=== PATIENT | female | born 1995 | race Two or more races ===

== ENCOUNTER 2023-08-23 00:50 | Emergency (ER) | payer MEDICAID, OTHER ==
[~2023-08-23] VITALS: Ht 165.1 cm; Wt 73.1 kg
[2023-08-23 01:51] LABS: Basophils # (auto) 0 10 ^3/uL (0-0.2); Basophils % (auto) 0.2 % (0.0-2.0); Eosinophils # (auto) 0 10 ^3/uL (0-0.8); Eosinophils % (auto) 0.4 % (0.0-7.0); Hematocrit 39.5 % (36.0-46.0); Hemoglobin 13.7 g/dL (12.2-16.2); Lymphocytes % (auto) 33.5 % (10.0-50.0); Mean Corpuscular Hemoglobin 31.7 pg (28.0-32.0); Mean Corpuscular Hgb Conc. 34.7 g/dL (32.0-36.0); Mean Corpuscular Volume 91.5 fL (80.0-100.0); Monocytes # (auto) 0.6 10 ^3/uL (0-1.3); Monocytes % (auto) 6.6 % (0.0-12.0); Neutrophils # (auto) 5.3 10 ^3/uL (1.6-8.6); Neutrophils % (auto) 59.3 % (37.0-80.0); Red Blood Cells 4.32 10^6/uL (4.0-5.20); Red Cell Distribution Width 13.6 % (11.8-14.3)
[2023-08-23 02:01] LABS: Chloride 107 mmol/L (98-107); Sodium 139 mmol/L (136-145)
[2023-08-23 02:02] LABS: Anion Gap 6 (5-15); Calcium 9.5 mg/dL (8.7-10.4); Carbon Dioxide 26 mmol/L (20-30)
[2023-08-23 02:07] LABS: BUN/Creatinine Ratio 15.2 (10.0-20.0); Blood Urea Nitrogen 10 mg/dL (9-23); Glucose 106 mg/dL (74-106)
[2023-08-23 02:15] LABS: COVID19 ANTIGEN SOFIA FIA NEGATIVE (NEGATIVE)
[2023-08-23] MEDS ORDERED: ACET500T58 PO (03:04)
[2023-08-23] MEDS ORDERED: ALBUAER3 IN (03:04)
[2023-08-23] MEDS ORDERED: PRED20TA2 PO (03:04)
[2023-08-23 03:47] VITALS: BP 106/57; PULSE 77; RESP 18; TEMP 98.2; O2SAT 98
== END 2023-08-23 03:53 | disposition home or self-care (01) ==
LOC: ER 00:50
DX: R07.89 Other chest pain (principal); R10.2 Pelvic and perineal pain; J06.9 Acute upper respiratory infection, unspecified; Z20.822 Contact with and (suspected) exposure to COVID-19
CPT/HCPCS: 36415; 71045; 80048; 84484; 84702; 85025; 87426; 93005

== ENCOUNTER 2024-03-12 07:20 | Emergency (ER) | payer MEDICAID ==
[~2024-03-12] VITALS: Ht 162.6 cm; Wt 72.0 kg
[~2024-03-12 07:20] MED LIST: ACET500T58 PO; ALBUAER3 IN; PRED20TA2 PO
[2024-03-12 08:47] LABS: Basophils # (auto) 0 10 ^3/uL (0-0.2); Basophils % (auto) 0.3 % (0.0-2.0); Eosinophils # (auto) 0 10 ^3/uL (0-0.8); Eosinophils % (auto) 0.7 % (0.0-7.0); Hematocrit 38.1 % (36.0-46.0); Lymphocytes # (auto) 2.2 10 ^3/uL (0.4-5.4); Lymphocytes % (auto) 36.1 % (10.0-50.0); Mean Corpuscular Hemoglobin 31.6 pg (28.0-32.0); Mean Corpuscular Hgb Conc. 34.1 g/dL (32.0-36.0); Mean Corpuscular Volume 92.7 fL (80.0-100.0); Monocytes # (auto) 0.4 10 ^3/uL (0-1.3); Monocytes % (auto) 6.8 % (0.0-12.0); Neutrophils # (auto) 3.5 10 ^3/uL (1.6-8.6); Neutrophils % (auto) 56.1 % (37.0-80.0); Nucleated Red Blood Cells % 0.1 %; Platelet Count (auto) 262 10^3/uL (140-450); Red Blood Cells 4.12 10^6/uL (4.0-5.20); Red Cell Distribution Width 13.5 % (11.8-14.3); White Blood Cell 6.2 10^3/uL (4.4-10.8)
[2024-03-12 09:12] LABS: Alanine Aminotransferase 21 U/L (7-40); Albumin 4.4 g/dL (3.2-4.8); Alkaline Phosphatase 60 U/L (46-116); Anion Gap 7 (5-15); Aspartate Aminotransferase 11 U/L (13-40); BUN/Creatinine Ratio 21.8 (10.0-20.0); Bilirubin, Total 0.5 mg/dL (0.2-1.0); Blood Urea Nitrogen 12 mg/dL (9-23); Calcium 9.5 mg/dL (8.7-10.4); Carbon Dioxide 27 mmol/L (20-30); Chloride 108 mmol/L (98-107); Glucose 86 mg/dL (74-106); Potassium 4.1 mmol/L (3.5-5.1); Sodium 142 mmol/L (136-145); Total Protein 6.9 g/dL (5.7-8.2)
[2024-03-12 09:30] LABS: Urine Bacteria FEW /hpf (None Seen); Urine Blood 3+ /uL (Negative); Urine Clarity Turbid (Clear); Urine Color Light-Yellow (Yellow); Urine Mucus FEW (None Seen); Urine Protein, UAD Negative (Negative); Urine Specific Gravity 1.026 (1.001-1.035); Urine Urobilinogen Normal (Negative); Urine WBC 14 /hpf (0 - 5)
[2024-03-12] MEDS ORDERED: NAP500T GT (11:32)
[2024-03-12 11:39] VITALS: BP 102/56; PULSE 68; RESP 14; TEMP 98.2; O2SAT 99
== END 2024-03-12 11:44 | disposition home or self-care (01) ==
LOC: ER 07:20
DX: G44.209 Tension-type headache, unspecified, not intractable (principal); R07.89 Other chest pain; M54.9 Dorsalgia, unspecified; F41.9 Anxiety disorder, unspecified; Z98.890 Other specified postprocedural states; Z79.899 Other long term (current) drug therapy
CPT/HCPCS: 36415; 70450; 71045; 80053; 81001; 81025; 84484; 85025; 93005

== ENCOUNTER 2024-09-09 23:14 | Emergency (ER) | payer MEDICAID ==
[~2024-09-09] VITALS: Ht 162.6 cm; Wt 73.9 kg
[~2024-09-09 23:14] MED LIST changes: +NAP500T GT
[2024-09-09 23:22] VITALS: BP 142/79; PULSE 99; RESP 16; O2SAT 96
--- NOTE | 2024-09-10 00:50 | DVH ---
CLINICAL INDICATION: RIGHT ANKLE PAIN TECHNIQUE: XY right ANKLE 3 VIEW Comparison: None FINDINGS/IMPRESSION: There is no evidence of acute fracture or dislocation. Soft tissues are unremarkable.
--- NOTE | 2024-09-10 00:53 | DVH ---
CLINICAL INDICATION: RIGHT FOOT PAIN TECHNIQUE: XY right FOOT 3 VIEW XRAY Comparison: None FINDINGS/IMPRESSION: There is no evidence of acute fracture or dislocation. 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
--- NOTE | 2024-09-10 01:41 | ED.PDOC ---
Musculoskeletal HPI Comments 29 YEAR OLD FEMALE PRESENTS TO ER WITH COMPLAINTS OF RIGHT ANKLE PAIN X 1 DAY. PATIENT REPORTS THAT SHE "ROLLED" HER RIGHT ANKLE INWARDS WHILE WALKING DOWN 1 STEP INSIDE HER HOUSE AT 9:30 P.M. PRIOR TO ARRIVAL TO ER AND HAS SINCE BEEN EXPERIENCING PAIN/SWELLING/BRUISING TO RIGHT LATERAL ANKLE AND RIGHT LATERAL FOOT. DENIES HEAD INJURY/LOC. STATES SHE HAS BEEN UNABLE TO BEAR WEIGHT ON RIGHT LEG DUE TO RIGHT LATERAL ANKLE/RIGHT LATERAL FOOT PAIN. DENIES NUMBNESS/TINGLING, RIGHT KNEE PAIN, HIP PAIN OR ANY FURTHER SYMPTOMS/COMPLAINTS Chief Complaint: Lower Extremity Time Seen by MD: 23:37 Primary Care Provider: CONSTANTINO Flores Notes: Nurses Notes, Medications, Allergies Allergies: Coded Allergies: NO KNOWN ALLERGIES (Unverified , 08/23/23) Home Meds Active Scripts Acetaminophen (Acetaminophen) 500 Mg Tab, 500 MG PO Q4HPRN, #30 TAB 0 Refills Prov:GWENDOLYN BRODY 09/10/24 Naproxen (NAPROSYN TABLET) 500 Mg Tb, 500 MG GT BID for 10 Days, #20 TAB Prov:SIMA CADENA MD 03/12/24 Albuterol Sulfate (VENTOLIN MDI) 90 Mcg Ih, 2 PUFF IN Q4HPRN, #1 INH 0 Refills Prov:GWENDOLYN BRODY 08/23/23 Prednisone (Prednisone) 20 Mg Tab, 20 MG PO BID for 5 Days, #10 TAB 0 Refills Prov:GWENDOLYN BRODY 08/23/23 Acetaminophen (Acetaminophen) 500 Mg Tab, 500 MG PO Q4HPRN, #30 TAB 0 Refills Prov:GWENDOLYN BRODY 08/23/23 Information Source: Patient Mode of Arrival: Wheelchair Past Medical History PAST MEDICAL HISTORY: Anxiety Surgical History: Denies all surgeries 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 Family History Family History: Unknown Social History Smoker: Non-Smoker Alcohol: Denies ETOH Use Drugs: Denies Drug Use Lives In: Home Constitutional: denies: chills, diaphoresis, fatigue, fever, malaise, sweats, weakness, others EENTM: denies: blurred vision, double vision, ear bleeding, ear discharge, ear drainage, ear pain, ear ringing, eye pain, eye redness, hearing loss, mouth pain, mouth swelling, nasal discharge, nose bleeding, nose congestion, nose pain, photophobia, tearing, throat pain, throat swelling, voice changes, others Respiratory: denies: cough, hemoptysis, orthopnea, SOB at rest, shortness of breath, SOB with excertion, stridor, wheezing, others Cardiovascular: denies: chest pain, dizzy spells, diaphoresis, Dyspnea on exertion, edema, irregular heart beat, left arm pain, lightheadedness, palpitations, PND, syncope, others Gastrointestinal: denies: abdomen distended, abdominal pain, blood streaked bowels, constipated, diarrhea, dysphagia, difficulty swallowing, hematemesis, melena, nausea, poor appetite, poor fluid intake, rectal bleeding, rectal pain, vomiting, others Genitourinary: denies: abnormal vagina bleeding, burning, dyspareunia, dysuria, flank pain, frequency, hematuria, incontinence, pain, , vagina discharge, urgency, others Neurological: denies: dizziness, fainting, headache, left sided numbness, left sided weakness, numbness, paresthesia, pre-existing deficit, right sided numbness, right sided weakness, seizure, speech problems, tingling, tremors, weakness, others Musculoskeletal: reports: others ( STATED IN HPI) Integumetry: reports: others ( STATED IN HPI) Allergic/Immunocompromised: denies: Difficulty Healing, Frequent Infections, Hives, Itching, others Hematologic/Lymphatic: denies: anemia, blood clots, easy bleeding, easy bruising, swollen glands, others Endocrine: denies: excessive hunger, excessive sweating, excessive thirst, excessive urination, flushing, intolerance to cold, intolerance to heat, unexplained weight gain, unexplained weight loss, others Psychiatric: denies: anxiety, bipolar disorder, depression, hopeless, panic disorder, schizophrenia, sleepless, suicidal, others Physical Exam General Appearance: No Apparent Distress HEENT: PERRL/EOMI Neck: Full Range of Motion, Non-Tender, Normal Respiratory: Chest Non-Tender, Lungs Clear, No Accessory Muscle Use, No Respiratory Distress, Normal Breath Sounds Cardiovascular: No Murmur, No Gallop, Regular Rate/Rhythm Breast Exam: Deferred Gastrointestinal: NOT DONE Genitalia: Deferred Pelvic: Deferred Rectal: Deferred Extremities: No calf tenderness, Normal capillary refill Musculoskeletal : Extremity Location: Ankle (TTP/MILD SWELLING/ECCHYMOSIS NOTED TO RIGHT LATERAL MALLEOLUS AND RIGHT LATERAL FOOT. NO OTHER TTP TO RIGHT ANKLE/RIGHT FOOT NOTED. PULSES INTACT. PATIENT UNABLE TO BEAR WEIGHT ON RIGHT LEG DUE TO PAIN LOCALIZED TO RIGHT LATERAL MALLEOLUS AND RIGHT LATERAL FOOT.) Neurologic: Alert, No Motor Deficits, Normal Affect, Normal Mood, No Sensory Deficits Cerebellar Function: Normal Reflexes: Normal Skin: Dry, Warm Peripheral Pulses: 2+ femoral (R), 2+ femoral (L), 2+ dorsalis pedis (R), 2+ dorsalis pedis (L) Lymphatic: No Adenopathy Was a procedure done? Was a procedure done?: No Sedation Sedation?: No Differential Diagnosis EXT Differential Diagnosis: Fracture, Dislocation, Neurovascular injury X-Ray, Labs, Meds, VS Vital Signs Date Time Temp Pulse Resp B/P (MAP) Pulse Ox O2 Delivery O2 Flow Rate FiO2 09/09/24 23:22 98.2 99 16 142/79 (100) 96 PATIENT: JOHNNY ARMSTRONGACCT: [id number]: [id number] : 1995 LOC: ER ROOM / BED: / AGE / SEX: 29 / F ADM STATUS: REG ER SERVICE 37 ORDERING PHYSICIAN: GWENDOLYN BRODY PROCEDURE(s): RFOOT - R FOOT 3 VIEW XRAY REASON: RIGHT FOOT PAIN ORDER NUMBER(s): [id number], ACCESSION NUMBER(s): [id number] CLINICAL INDICATION: RIGHT FOOT PAIN TECHNIQUE: XY right FOOT 3 VIEW XRAY Comparison: None FINDINGS/IMPRESSION: There is no evidence of acute fracture or dislocation. 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 ATED BY: CHYNA BURTON MD DICTATED DATE/TIME: 09/10/2449 SIGNED BY: CHYNA BURTON MD SIGNED DATE/TIME: 09/10/2449 CC: PATIENT: JOHNNY ARMSTRONG ACCT: [id number] UNIT: [id number] : 1995 LOC: ER ROOM / BED: / AGE / SEX: 29 / F ADM STATUS: REG ER SERVICE 37 ORDERING PHYSICIAN: GWENDOLYN BRODY PROCEDURE(s): RANKL - R ANKLE 3 VIEW REASON: RIGHT ANKLE PAIN ORDER NUMBER(s): [id number], ACCESSION NUMBER(s): [id number] CLINICAL INDICATION: RIGHT ANKLE PAIN TECHNIQUE: XY right ANKLE 3 VIEW Comparison: None FINDINGS/IMPRESSION: There is no evidence of acute fracture or dislocation. Soft tissues are unremarkable. ATED BY: CHYNA BURTON MD DICTATED DATE/TIME: 09/10/2446 SIGNED BY: CHYNA BURTON MD SIGNED DATE/TIME: 09/10/2446 CC: Right foot right foot and right ankle x-ray reviewed Aftab wrap applied Crutches ordered, patient educated on proper use. Was advised on use at all times Tylenol 650 mg p.o. ordered Patient neurovascularly intact and reported improvement in symptoms prior to discharge Advised on rest/no strenuous activity, elevation and alternate ice on/off as needed for pain/swelling Advised to follow up with PCP and orthopedics in 1-2 days Patient verbalized understanding and agreeable with current plan of care Advised to return to ER immediately if symptoms worsen Images Reviewed?: Images reviewed and evaluated by me Time of 1ST Reevaluation: 01:12 Reevaluation 1ST: N/A Patient Education/Counseling: Diagnosis, Treatment, Prognosis, Need For Follow Up Family Education/Counseling: No Family Present Departure 1 Departure Time of Disposition: 01:32 Impression: Primary Impression: Right ankle sprain Qualified Codes: S93.401A - Sprain of unspecified ligament of right ankle, initial encounter Additional Impression: Right foot sprain Qualified Codes: S93.601A - Unspecified sprain of right foot, initial e ncounter Disposition: 01 HOME / SELF CARE / HOMELESS Condition: Stable e-Prescriptions Acetaminophen (Acetaminophen) 500 Mg Tab 500 MG PO Q4HPRN, #30 TAB 0 Refills Prov: GWENDOLYN BRODY 09/10/24 Discharged With: Self Critical Care Note Critical Care Time?: No Stability Stability form required: No Heart Score Heart Score: Heart Score Response (Comments) Value History N/A 0 EKG N/A 0 Age N/A 0 Risk Factors N/A 0 Troponin N/A 0 Total 0 GWENDOLYN BRODY Sep 10, 2024 01:41
[2024-09-10] MEDS: ACETAMINOPHEN 325 MG TAB PO ONE (01:53)
== END 2024-09-10 01:59 | disposition home or self-care (01) ==
LOC: ER 23:14
DX: S93.401A Sprain of unspecified ligament of right ankle, initial encounter (principal); S93.601A Unspecified sprain of right foot, initial encounter; F41.9 Anxiety disorder, unspecified; Z79.52 Long term (current) use of systemic steroids; Z79.1 Long term (current) use of non-steroidal anti-inflammatories (NSAID); Z79.899 Other long term (current) drug therapy; X58.XXXA Exposure to other specified factors, initial encounter; Y93.01 Activity, walking, marching and hiking; Y92.009 Unspecified place in unspecified non-institutional (private) residence as the place of occurrence of the external cause; Y99.8 Other external cause status
CPT/HCPCS: 73610; 73630

== ENCOUNTER 2025-05-24 15:14 | Emergency (ER) | payer MEDICAID ==
[~2025-05-24] VITALS: Ht 162.6 cm; Wt 71.9 kg
[2025-05-24 15:16] VITALS: BP 112/69; PULSE 90; RESP 18; TEMP 98.1; O2SAT 98
--- NOTE | 2025-05-24 15:56 | ED.PDOC ---
History of Present Illness HPI Comments A 30 YEAR OLD FEMALE PRESENTS TO THE ED WITH COMPLAINT OF BREAST PAIN. PATIENT HAS BEEN HAVING LEFT-SIDED BREAST PAIN FOR THE PAST FOUR DAYS. PATIENT STATES THAT SHE PERFORMS MONTHLY BREAST EXAMS AND DENIES ANY ASSOCIATED LUMPS IN HER BREASTS. PATIENT HAS ASSOCIATED INCREASED PAIN WITH MOVEMENT BUT HAS NO NOTED DISCOLORATION AND BREAST OR NIPPLE DISCHARGE PATIENT DENIES FEVER, CHILLS, SHORTNESS OF BREATH, CHEST PAIN, ABDOMINAL PAIN, NAUSEA, VOMITING, HEADACHE, OR OTHER COMPLAINTS. NO OTHER SYMPTOMS OR MODIFYING FACTORS AT THIS TIME. PATIENT IS ALERT, ORIENTED X 4, AND HAS STEADY GAIT. Chief Complaint: Breast pain Time Seen by MD: 15:48 Primary Care Provider: CONSTANTINO Flores Notes: Nurses Notes, Medications, Allergies Allergies: Coded Allergies: NO KNOWN ALLERGIES (Unverified , 08/23/23) Home Meds Active Scripts Acetaminophen (Acetaminophen) 500 Mg Tab, 500 MG PO Q4HPRN, #30 TAB 0 Refills Prov:GWENDOLYN BRODY 09/10/24 Naproxen (NAPROSYN TABLET) 500 Mg Tb, 500 MG GT BID for 10 Days, #20 TAB Prov:SIMA CADENA MD 03/12/24 Albuterol Sulfate (VENTOLIN MDI) 90 Mcg Ih, 2 PUFF IN Q4HPRN, #1 INH 0 Refills Prov:GWENDOLYN BRODY 08/23/23 Prednisone (Prednisone) 20 Mg Tab, 20 MG PO BID for 5 Days, #10 TAB 0 Refills Prov:GWENDOLYN BRODY 08/23/23 Acetaminophen (Acetaminophen) 500 Mg Tab, 500 MG PO Q4HPRN, #30 TAB 0 Refills Prov:GWENDOLYN BRODY 08/23/23 Information Source: Patient Mode of Arrival: Ambulatory Severity: Mild, Moderate Timing: Days Duration: Days Prehospital treatment: None Medication Refill: For: Other (LEFT BREAST PAIN ) Past Medical History PAST MEDICAL HISTORY: Anxiety Surgical History: Denies all surgeries 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 Family History Family History: Unknown Social History Smoker: Non-Smoker Alcohol: Denies ETOH Use Drugs: Denies Drug Use Lives In: Home Constitutional: denies: chills, diaphoresis, fatigue, fever, malaise, sweats, weakness, others EENTM: denies: blurred vision, double vision, ear bleeding, ear discharge, ear drainage, ear pain, ear ringing, eye pain, eye redness, hearing loss, mouth pain, mouth swelling, nasal discharge, nose bleeding, nose congestion, nose pain, photophobia, tearing, throat pain, throat swelling, voice changes, others Respiratory: denies: cough, hemoptysis, orthopnea, SOB at rest, shortness of breath, SOB with excertion, stridor, wheezing, others Cardiovascular: denies: chest pain, dizzy spells, diaphoresis, Dyspnea on exertion, edema, irregular heart beat, left arm pain, lightheadedness, palpitations, PND, syncope, others Gastrointestinal: denies: abdomen distended, abdominal pain, blood streaked bowels, constipated, diarrhea, dysphagia, difficulty swallowing, hematemesis, melena, nausea, poor appetite, poor fluid intake, rectal bleeding, rectal pain, vomiting, others Genitourinary: denies: abnormal vagina bleeding, burning, dyspareunia, dysuria, flank pain, frequency, hematuria, incontinence, pain, , vagina discharge, urgency, others Neurological: denies: dizziness, fainting, headache, left sided numbness, left sided weakness, numbness, paresthesia, pre-existing deficit, right sided numbness, right sided weakness, seizure, speech problems, tingling, tremors, weakness, others Musculoskeletal: denies: back pain, gout, joint pain, joint swelling, muscle pain, muscle stiffness, neck pain, others Integumetry: reports: others (LEFT BREAST PAIN); denies: bruises, change in color, change in hair/nails, dryness, laceration, lesions, lumps, rash, wounds Allergic/Immunocompromised: denies: Difficulty Healing, Frequent Infections, Hi ves, Itching, others Hematologic/Lymphatic: denies: anemia, blood clots, easy bleeding, easy bruising, swollen glands, others Endocrine: denies: excessive hunger, excessive sweating, excessive thirst, excessive urination, flushing, intolerance to cold, intolerance to heat, unexplained weight gain, unexplained weight loss, others Psychiatric: denies: anxiety, bipolar disorder, depression, hopeless, panic disorder, schizophrenia, sleepless, suicidal, others All Other Systems: Reviewed and Negative Physical Exam General Appearance: No Apparent Distress, Normal HEENT: Normal ENT Inspection, PERRL/EOMI, Pharynx Normal, TMs Normal Neck: Full Range of Motion, Non-Tender, Normal, Normal Inspection Respiratory: Chest Non-Tender, Lungs Clear, No Accessory Muscle Use, No Respiratory Distress, Normal Breath Sounds Cardiovascular: No Edema, No JVD, No Murmur, No Gallop, Normal Peripheral Pulses, Regular Rate/Rhythm Breast Exam: (L) Tenderness (ON LEFT BREAST, NO REDNESS, SWELLING AND INFECTION SIGNS, NO LUMP OR CYST PALPABLE. ), Deferred Gastrointestinal: No Organomegaly, Non Tender, No Pulsatile Mass, Normal Bowel Sounds, Soft Genitalia: Deferred Pelvic: Deferred Rectal: Deferred Extremities: No calf tenderness, Normal capillary refill, Normal inspection, Normal range of motion, Non-tender, No pedal edema Musculoskeletal : Apperance: Normal Neurologic: Alert, health physicist II-XII nml as Tested, No Motor Deficits, Normal Affect, Normal Mood, No Sensory Deficits Cerebellar Function: Normal Reflexes: Normal Skin: Dry, Normal Color, Warm Peripheral Pulses: 2+ carotid (R), 2+ carotid (L) Lymphatic: No Adenopathy Was a procedure done? Was a procedure done?: No Differential Dx Considerations may include: MASTITIS, BREAST PAIN,BREAST MASS X-Ray, Labs, Meds, VS Vital Signs Date Time Temp Pulse Resp B/P (MAP) Pulse Ox O2 Delivery O2 Flow Rate FiO2 05/24/25 15:16 98.1 90 18 112/69 98 98.1 [place] [id number] Ph: [phone] DIAGNOSTIC IMAGING Diagnostic Imaging Report : [id number] Signed PATIENT: JOHNNY ARMSTRONG ACCT: [id number] UNIT: [id number] : 1995 LOC: ER ROOM / BED: / AGE / SEX: 30 / F ADM STATUS: REG ER SERVICE 1546 ORDERING PHYSICIAN: HOMER CHAN PROCEDURE(s): LBRST - L BREAST ULTRASOUND REASON: PAIN AND LUMP ON LEFT LATERAL BREAST ORDER NUMBER(s): [id number], ACCESSION NUMBER(s): [id number] US OF THE left BREAST INDICATION: PAIN AND LUMP ON LEFT LATERAL BREAST TECHNIQUE: All 4 quadrants, subareolar region and axillary region of the left breast were evaluated with ultrasound COMPARISON: None FINDINGS: Benign cyst is present in the periareolar region measuring 0.2 cm. No solid or suspicious masses. No areas of architectural distortion. No malignant adenopathy. No dominant cysts are present. IMPRESSION: There is no sonographic evidence for malignancy. ACR Bi Rads Category:Category 2 ATED BY: JF TEJADA MD DICTATED DATE/TIME: 05/24/251628 SIGNED BY: JF TEJADA MD SIGNED DATE/TIME: 05/24/251628 CC: X-Ray, Labs, Meds, VS Comment COURSE: EXTERNAL MEDICAL RECORDS REVIEWED: [NONE] INDEPENDENT HISTORIANS: [NONE] SOCIAL DETERMINANTS OF HEALTH: [NONE] LABS ORDERED: NONE REVIEWED AND INTERPRETED RESULTS: NONE IMAGING ORDERED: BREAST ULTRASOUND TREATMENTS ORDERED: NONE PROCEDURES PERFORMED: NONE CRITICAL CARE TIME: NONE I HAVE DISCUSSED THE PATIENT WITH THE ATTENDING PHYSICIAN DR. SY AND HE AGREES WITH THE PATIENT'S PLAN OF CARE AND DISPOSITION. BASED ON HISTORY OF PRESENT ILLNESS, AND PHYSICAL EXAM, PATIENT WILL BE DISCHARGED HOME. DISCUSSED PLAN FOR DISCHARGE HOME WITH RX [NAPROXEN 500MG]. MEDICATION WARNINGS GIVEN. SHARED DECISION MAKING: DISCUSSED WITH PATIENT THAT THEIR WORKUP WAS NORMAL. PATIENT INSTRUCTED TO FOLLOW UP WITH PRIMARY CARE PROVIDER IN 1-2 DAYS FOR RE- EVALUATION OF SYMPTOMS. PATIENT VERBALIZES UNDERSTANDING TO RETURN TO ED FOR NEW OR WORSENING SYMPTOMS OR IF FOLLOW UP WITH PCP CANNOT BE OBTAINED. PATIENT FEELS COMFORTABLE GOING HOME AT THIS TIME. ALL QUESTIONS ADDRESSED AT TIME OF D ISCHARGE. Time of 1ST Reevaluation: 17:00 Reevaluation 1ST: Improved Patient Education/Counseling: Diagnosis, Treatment, Need For Follow Up Family Education/Counseling: Diagnosis, Treatment, No Family Present Medical Screening: No EMC Exist At This Time SEPSIS Sepsis Screen Date sepsis recognized/suspect: May 24, 2025 Time Sepsis recognized/suspect: 1518 Recent Procedure: No On Antibiotic Therapy: No Respiratory Rate >20: No Heart Rate >90: No Temp<36 C (96.8 F) or >38.3 C: No SBP <90 or MAP <65 mmHG: No New Acute Mental Status Change: No Is the patient on CPAP, BIPAP,: No Physician Orders L Breast Ultrasound (05/24/25 15:46) Vital Signs Date Time Temp Pulse Resp B/P (MAP) Pulse Ox O2 Delivery O2 Flow Rate FiO2 05/24/25 15:16 98.1 90 18 112/69 98 98.1 Departure 1 Departure Time of Disposition: 16:00 Impression: Primary Impression: Breast pain, left Disposition: 01 HOME / SELF CARE / HOMELESS Condition: Stable Additional Instructions: INSTRUCTIONS: FOLLOW-UP WITH PCP IN 1 TO 2 DAYS. TAKE MEDICATIONS PRESCRIBED. RETURN TO ED FOR ANY NEW OR WORSENING SYMPTOMS. e-Prescriptions Naproxen (Naproxen) 500 Mg Tab 500 MG PO BID, #24 TAB Prov: HOMER CHAN 05/24/25 Discharged With: Self Critical Care Note Critical Care Time?: No Stability Stability form required: No Heart Score Heart Score: Heart Score Response (Comments) Value History N/A 0 EKG N/A 0 Age N/A 0 Risk Factors N/A 0 Troponin N/A 0 Total 0 I personally scribed for HOMER CHAN ([email or web address]) on 05/24/25 at 15:56. Electronically submitted by Aleks Ashley ([employer]). I personally scribed for HOMER CHAN ([email or web address]) on 05/24/25 at 16:33. Electronically submitted by Aleks Ashley ([employer]). I personally scribed for HOMER CHAN ([email or web address]) on 05/24/25 at 16:38. Electronically submitted by Aleks Ashley ([email or web address]). HOMER CHAN May 24, 2025 15:56
--- NOTE | 2025-05-24 16:31 | DVH ---
US OF THE left BREAST INDICATION: PAIN AND LUMP ON LEFT LATERAL BREAST TECHNIQUE: All 4 quadrants, subareolar region and axillary region of the left breast were evaluated with ultrasound COMPARISON: None FINDINGS: Benign cyst is present in the periareolar region measuring 0.2 cm. No solid or suspicious masses. No areas of architectural distortion. No malignant adenopathy. No dominant cysts are present. IMPRESSION: There is no sonographic evidence for malignancy. ACR Bi Rads Category:Category 2
[2025-05-24] MEDS ORDERED: NAPR-746 PO (16:51)
== END 2025-05-24 16:51 | disposition home or self-care (01) ==
LOC: ER 15:14
DX: N64.4 Mastodynia (principal); F41.9 Anxiety disorder, unspecified; Z79.899 Other long term (current) drug therapy; Z79.52 Long term (current) use of systemic steroids; Z79.1 Long term (current) use of non-steroidal anti-inflammatories (NSAID)
CPT/HCPCS: 76642

== ENCOUNTER 2025-06-17 08:54 | Emergency (ER) | payer MEDICAID ==
[~2025-06-17] VITALS: Ht 162.6 cm; Wt 73.6 kg
[~2025-06-17 08:54] MED LIST changes: +NAPR-746 PO
[2025-06-17 10:25] LABS: Urine Budding Yeast OCCASIONAL /hpf (None Seen); Urine Protein, UAD Negative (Negative)
[2025-06-17 12:16] LABS: Hematocrit 38.3 % (36.0-46.0); Hemoglobin 12.9 g/dL (12.2-16.2); Mean Corpuscular Hemoglobin 30.6 pg (28.0-32.0); Mean Corpuscular Volume 90.5 fL (80.0-100.0); Nucleated Red Blood Cells % 0.0 %
[2025-06-17 12:24] LABS: Chloride 104 mmol/L (98-107); Potassium 4.4 mmol/L (3.5-5.1); Sodium 140 mmol/L (136-145)
[2025-06-17 12:25] LABS: Anion Gap 9 (5-15); Calcium 9.7 mg/dL (8.7-10.4); Carbon Dioxide 27 mmol/L (20-31)
[2025-06-17 12:30] LABS: BUN/Creatinine Ratio 17.5 (10.0-20.0); Blood Urea Nitrogen 10 mg/dL (9-23); Glucose 86 mg/dL (74-106)
--- NOTE | 2025-06-17 13:41 | ED.PDOC ---
GI ASSESSMENT HPI Comments 30 y/o F, presents to the ED for CC of blood in stool. Patient states, to have blood streak bowels sudden onset, x1day. Patient reports, feces to be "normal" in appearance with blood present when wiping. Patient does endorse intermittent constipation. Patient denies nausea, hematemesis, fatigue, weakness, or urinary symptoms. No other symptoms or modifying factors are present at this time. Chief Complaint: Rectal bleeding Time Seen by MD: 13:00 Primary Care Provider: CONSTANTINO Flores Notes: Nurses Notes, Medications, Allergies Allergies: Coded Allergies: NO KNOWN ALLERGIES (Unverified , 08/23/23) Home Meds Active Scripts Polyethylene Glycol 3350 (Miralax) 17 Gm Pow, 17 GM PO DAILY for 14 Days, #14 POW Prov:NA SHIPMAN MD 06/17/25 Naproxen (Naproxen) 500 Mg Tab, 500 MG PO BID, #24 TAB Prov:HOMER CHAN 05/24/25 Acetaminophen (Acetaminophen) 500 Mg Tab, 500 MG PO Q4HPRN, #30 TAB 0 Refills Prov:GWENDOLYN BRODY 09/10/24 Naproxen (NAPROSYN TABLET) 500 Mg Tb, 500 MG GT BID for 10 Days, #20 TAB Prov:SIMA CADENA MD 03/12/24 Albuterol Sulfate (VENTOLIN MDI) 90 Mcg Ih, 2 PUFF IN Q4HPRN, #1 INH 0 Refills Prov:GWENDOLYN BRODY 08/23/23 Prednisone (Prednisone) 20 Mg Tab, 20 MG PO BID for 5 Days, #10 TAB 0 Refills Prov:GWENDOLYN BRODY 08/23/23 Acetaminophen (Acetaminophen) 500 Mg Tab, 500 MG PO Q4HPRN, #30 TAB 0 Refills Prov:GWENDOLYN BRODY 08/23/23 Information Source: Patient Mode of Arrival: Ambulatory Timing: Days Duration: Since onset Prehospital treatment: None Vomitus: None Stool: Blood Streaked Severity: Moderate Recent: None Recent Hx of: None Pain Location: None Modifying Factors: Nothing Associated sign and symptoms: Blood in Stool Past Medical History PAST MEDICAL HISTORY: Anxiety Surgical History: Denies all surgeries [employer] 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 Family History Family History: Unknown Social History Smoker: Non-Smoker Alcohol: Denies ETOH Use Drugs: Denies Drug Use Lives In: Home Constitutional: denies: chills, diaphoresis, fatigue, fever, malaise, sweats, weakness, others EENTM: denies: blurred vision, double vision, ear bleeding, ear discharge, ear drainage, ear pain, ear ringing, eye pain, eye redness, hearing loss, mouth pain, mouth swelling, nasal discharge, nose bleeding, nose congestion, nose pain, photophobia, tearing, throat pain, throat swelling, voice changes, others Respiratory: denies: cough, hemoptysis, orthopnea, SOB at rest, shortness of breath, SOB with excertion, stridor, wheezing, others Cardiovascular: denies: chest pain, dizzy spells, diaphoresis, Dyspnea on exert ion, edema, irregular heart beat, left arm pain, lightheadedness, palpitations, PND, syncope, others Gastrointestinal: reports: blood streaked bowels; denies: abdomen distended, abdominal pain, constipated, diarrhea, dysphagia, difficulty swallowing, hematemesis, melena, nausea, poor appetite, poor fluid intake, rectal bleeding, rectal pain, vomiting, others Genitourinary: denies: abnormal vagina bleeding, burning, dyspareunia, dysuria, flank pain, frequency, hematuria, incontinence, pain, , vagina discharge, urgency, others Neurological: denies: dizziness, fainting, headache, left sided numbness, left sided weakness, numbness, paresthesia, pre-existing deficit, right sided numbness, right sided weakness, seizure, speech problems, tingling, tremors, weakness, others Musculoskeletal: denies: back pain, gout, joint pain, joint swelling, muscle pain, muscle stiffness, neck pain, others Integumetry: denies: bruises, change in color, change in hair/nails, dryness, laceration, lesions, lumps, rash, wounds, others Allergic/Immunocompromised: denies: Difficulty Healing, Frequent Infections, Hives, Itching, others Hematologic/Lymphatic: denies: anemia, blood clots, easy bleeding, easy bruising, swollen glands, others Endocrine: denies: excessive hunger, excessive sweating, excessive thirst, excessive urination, flushing, intolerance to cold, intolerance to heat, unexplained weight gain, unexplained weight loss, others Psychiatric: denies: anxiety, bipolar disorder, depression, hopeless, panic disorder, schizophrenia, sleepless, suicidal, others All Other Systems: Reviewed and Negative Physical Exam General Appearance: No Apparent Distress, Normal HEENT: Normal ENT Inspection, Pharynx Normal Neck: Full Range of Motion, Non-Tender, Normal, Normal Inspection Respiratory: Chest Non-Tender, Lungs Clear, No Accessory Muscle Use, No Respiratory Distress, Normal Breath Sounds Cardiovascular: No Edema, No Murmur, No Gallop, Normal Peripheral Pulses, Regular Rate/Rhythm Breast Exam: Deferred Gastrointestinal: No Organomegaly, Non Tender, No Pulsatile Mass, Normal Bowel Sounds, Soft Genitalia: Deferred Pelvic: Deferred (As per patient request) Rectal: Deferred Extremities: No calf tenderness, Normal capillary refill, Normal inspection, Normal range of motion, Non-tender, No pedal edema Musculoskeletal : Apperance: Normal 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 Was a procedure done?: No GI differential Dx Differential Diagnosis: Cholangitis, Constipation, Other (hemorrhoids internal versus external, bowel obstruction, diverticulitis, anal fissure) X-Ray, Labs, Meds, VS Vital Signs Date Time Temp Pulse Resp B/P (MAP) Pulse Ox O2 Delivery O2 Flow Rate FiO2 06/17/25 12:15 98.0 71 16 113/68 (83) 99 98.0 06/17/25 10:13 77 18 100 Room Air 06/17/25 10:13 98.3 77 18 111/52 (71) 100 98.3 06/17/25 08:55 97.9 73 18 120/63 100 97.9 Lab Test 06/17/25 11:53 06/17/25 10:00 Range/Units White Blood Count 6.8 4.4-10.8 10^3/uL Red Blood Count 4.23 4.0-5.20 10^6/uL Hemoglobin 12.9 12.2-16.2 g/dL Hematocrit 38.3 36.0-46.0 % Mean Corpuscular Volume 90.5 80.0-100.0 fL Mean Corpuscular Hemoglobin 30.6 28.0-32.0 pg Mean Corpuscular Hemoglobin Concent 33.8 32.0-36.0 g/dL Red Cell Distribution Width 14.1 11.8-14.3 % Platelet Count 299 140-450 10^3/uL Mean Platelet Volume 7.4 6.9-10.8 fL Neutrophils (%) (Auto) 57.2 37.0-80.0 % Lymphocytes (%) (Auto) 34.2 10.0-50.0 % Monocytes (%) (Auto) 7.5 0.0-12.0 % Eosinophils (%) (Auto) 0.8 0.0-7.0 % Basophils (%) (Auto) 0.3 0.0-2.0 % Neutrophils # (Auto) 3.9 1.6-8.6 10 ^3/uL Lymphocytes # (Auto) 2.3 0.4-5.4 10 ^3/uL Monocytes # (Auto) 0.5 0-1.3 10 ^3/uL Eosinophils # (Auto) 0.1 0-0.8 10 ^3/uL Basophils # (Auto) 0 0-0.2 10 ^3/uL Nucleated Red Blood Cells 0.0 % Sodium Level 140 136-145 mmol/L Potassium Level 4.4 3.5-5.1 mmol/L Chloride Level 104 98-107 mmol/L Carbon Dioxide Level 27 20-31 mmol/L Anion Gap 9 5-15 Blood Urea Nitrogen 10 9-23 mg/dL Creatinine 0.57 0.550-1.02 mg/dL Glomerular Filtration Rate Calc 127 >90 mL/min BUN/Creatinine Ratio 17.5 10.0-20.0 Serum Glucose 86 74-106 mg/dL Calcium Level 9.7 8.7-10.4 mg/dL Urine Color Light-yellow Yellow Urine Clarity Turbid H Clear Urine pH 6.5 5.0-9.0 Urine Specific Lillie 1.022 1.001-1.035 Urine Protein Negative Negative Urine Ketones Negative Negative Urine Blood 2+ H Negative /uL Urine Nitrite Negative Negative Urine Bilirubin Negative Negative Urine Urobilinogen Normal Negative mg/dL Urine Leukocyte Esterase 2+ Negative /uL Urine RBC 15 0 - 4 /hpf Urine Microscopic WBC 9 H 0-5 /HPF Urine Squamous Epithelial Cells Few <5 /hpf Urine Bacteria None seen None Seen /hpf Urine Yeast (Budding) Occasional None Seen /hpf Urine Glucose Normal Normal mg/dL X-Ray, Labs, Meds, VS Comment When he 10-year-old female here today with the complaints of bright red blood per rectum in the setting of constipation. Vital signs stable, afebrile. Physical exam without any acute findings although significantly limited because patient did not want to have a rectal exam performed. Labs overall reassuring without evidence of significant anemia nor an elevated BUN to suggest internal bleeding. Patient's presentation most likely consistent with internal hemorrhoid given painless. Possible diverticulosis although doubt given patient overall young and healthy. Doubt external hemorrhoids given pain-free. Doubt anal fissure given pain-free. Patient was instructed to follow up with the primary care provider for repeat CBC and for consideration of referral to a colorectal surgeon for consideration of sigmoidoscopy/colonoscopy. Patient expressed understanding and was discharged in stable condition ambulating with a steady gait and in no distress. Time of 1ST Reevaluation: 13:30 Reevaluation 1ST: Unchanged Patient Education/Counseling: Diagnosis, Treatment Family Education/Counseling: No Family Present SEPSIS Sepsis Screen Date sepsis recognized/suspect: Jun 17, 2025 Time Sepsis recognized/suspect: 08 Recent Procedure: No On Antibiotic Therapy: No Respiratory Rate >20: No Heart Rate >90: No Temp<36 C (96.8 F) or >38.3 C: No SBP <90 or MAP <65 mmHG: No New Acute Mental Status Change: No Is the patient on CPAP, BIPAP,: No Vital Signs Date Time Temp Pulse Resp B/P (MAP) Pulse Ox O2 Delivery O2 Flow Rate FiO2 06/17/25 12:15 98.0 71 16 113/68 (83) 99 98.0 06/17/25 10:13 77 18 100 Room Air 06/17/25 10:13 98.3 77 18 111/52 (71) 100 98.3 06/17/25 08:55 97.9 73 18 120/63 100 97.9 Laboratory Tests Test 06/17/25 11:53 White Blood Count 6.8 10^3/uL (4.4-10.8) Departure 1 Departure Time of Disposition: 14:29 Impression: Primary Impression: Bright red blood per rectum Additional Impression: Constipation Disposition: 01 HOME / SELF CARE / HOMELESS Condition: Stable e-Prescriptions Polyethylene Glycol 3350 (Miralax) 17 Gm Pow 17 GM PO DAILY for 14 Days, #14 POW Prov: NA SHIPMAN MD 06/17/25 Discharged With: Self Critical Care Note Critical Care Time?: No Stability Stability form required: No Heart Score Heart Score: Heart Score Response (Comments) Value History N/A 0 EKG N/A 0 Age N/A 0 Risk Factors N/A 0 Troponin N/A 0 Total 0 I personally scribed for NA SHIPMAN MD ([email or web address]) on 06/17/25 at 13:41. Electronically submitted by Cheri Andrews ([email or web address]). I personally scribed for NA SHIPMAN MD ([email or web address]) on 06/17/25 at 13:53. Electronically submitted by Cheri Andrews ([email or web address]). NA SHIPMAN MD Jun 17, 2025 13:41
[2025-06-17] MEDS ORDERED: POLY335015 PO (14:27)
[2025-06-17 14:48] VITALS: BP 129/74; PULSE 77; RESP 16; TEMP 97.9; O2SAT 100
== END 2025-06-17 15:02 | disposition home or self-care (01) ==
LOC: ER 08:54
DX: K92.1 Melena (principal); K59.00 Constipation, unspecified
CPT/HCPCS: 36415; 80048; 81001; 85025